=== PATIENT | female | born 1990 | race Caucasian/White ===

== ENCOUNTER 2017-03-14 14:28 | Emergency (ER) | payer OTHER ==
[2017-03-14] MEDS ORDERED: LORazepam 1 MG TABLET ONE (16:11)
[2017-03-14] MEDS ORDERED: ONDANSETRON ODT 4 MG TAB.RAPDIS ONE (16:17)
[2017-03-14] MEDS ORDERED: IBUPROFEN 600 MG TABLET PO ONE (16:36)
--- NOTE | 2017-03-14 17:10 | ER NURSING DOCUMENTATION ---
Nurse's Notes [facility] Name:Eduardo Diaz Age:27 yrs Sex:Female :1990 Arrival Date:03/14/2017 Time:14:28 Bed3 Private MD: Diagnosis:Cephalgia-: Acute Altitude Illness;Dehydration;Syncope Presentation: 03/14 14:32 Presenting complaint: Patient states: pt fainted today. She complains of a headache and st some dizziness. pt just arrived from [place]. Transition of care: patient was not received from another setting of care. 14:32 Acuity: SUKUMAR 3 st 14:32 Method Of Arrival: EMS: 420 st Triage Assessment: 14:34 General: Appears in no apparent distress, Behavior is cooperative. Pain: Complains of st pain in headache Pain currently is 5 out of 10 on a pain scale. Cardiovascular: No deficits noted. Reports EMS reports positive orthostatics. Respiratory: No deficits noted. GI: Reports nausea. Historical: - Allergies: PENICILLINS; - Home Meds: 1. control - PMHx: MIGRAINES; - PSHx: Tonsillectomy; - Tetanus: < 10 years. - Ebola Screening: : Patient denies exposure to infectious person. Patient denies travel to an Ebola-affected area in the 21 days before illness onset. . - Immunization history: Flu Vaccine < 1 year. - Social history: Smoking status: Patient states was never smoker of tobacco. Patient uses marijuana Patient/guardian denies using alcohol. Screenin:37 Infectious Disease Risk None. Abuse screen: Denies threats or abuse. Denies injuries st from another. pt feels safe at home. Nutritional screening: No deficits noted. Assessment: 14:38 General: Denies pt does not want any needles. . st 16:06 General: IV attempted pt had a full blown panic attack. IV with held at this time. . st 16:44 General: pt states her headache is getting a little better. pt is drowsy but is st drinking water and is going to try to eat some crackers. . Vital Signs: 14:37 BP 142 / 54; Pulse 90; Pulse Ox 97% ; Pain 5/10; st 16:05 BP 139 / 87; Pulse 69; Resp 16; Pulse Ox 96% on R/A; st 17:07 BP 137 / 65; Pulse 62; Resp 15; Pulse Ox 97% on R/A; Pain 0/10; mk2 [place] Coma Score: 14:50 Eye Response: spontaneous(4). Verbal Response: oriented(5). Motor Response: obeys cd commands(6). Total: 15. ED Course: 14:29 Patient arrived in ED. jl 14:32 Dottie Corea, RN is Primary Nurse. st 14:[address] 14:38 Valuables Remains with patient Patient has correct armband on for positive st identification. Bed in low position. 14:39 Diet: Patient given water. st 14:52 Marty Kumar MD is Attending Physician. cd 16:45 Diet: Patient given snack. Patient given water. st Administered Medications: 16:07 Drug: Ativan 1 mg; Route: PO; st 17:03 Follow up: pt more relaxed. st 16:08 Not Given (Other Intervention Used): NS 0.9% 1000 ml IV at bolus once st 16:08 Not Given (Other Intervention Used): Zofran 4 mg IVP once over [address] 16:08 Not Given (Other Intervention Used): Dilaudid 0.[address] 16:10 Drug: Zofran 4 mg; Route: PO; st 16:20 Follow up: Response: Nausea is decreased st 16:21 Drug: HYDROcodone-acetaminophen 5 mg-325 mg 1 tabs; Route: PO; st 17:03 Follow up: Response: Pain is decreased st 16:27 Drug: Motrin 600 mg; Route: PO; st 17:03 Follow up: Response: Pain is decreased st Point of Care Testing: Urine Dip: 15:11 pH: 6.5; ; Specific [place]: 1.020; Ketones: Negative; Glucose: Negative; Protein: sc1 Negative; Leukocytes: Negative; Nitrite: Negative ; Blood: Hemolyzed Trace; Bilirubin: Negative ; Urobilinogen: Normal Intake: 17:03 PO: 1500ml (Water); Total: 1500ml. st Outcome: 16:29 Discharge ordered by . cd 17:09 Discharged to home ambulatory. 2 17:09 Condition: improved 17:09 Discharge instructions given to patient, Instructed on discharge instructions, follow up and referral plans. medication usage, Prescriptions given X 2. 17:10 Patient left the ED. 2 03/15 14:11 Discharge F/U Call: Spoke with: patient. other: Name: pt has had no recurrence of her st dizziness or fainting. pt is feeling great and did not have any questions or concerns. Signatures: Dottie Corea RN RN st Campbell, Sandy, RN RN sc1 Marty Kumar MD MD cd Kruger, Meg, RN RN mk2 Ovi Rashid
--- NOTE | 2017-03-14 17:10 | ER PHYSICIAN DOCUMENTATION ---
Physician Documentation [facility] Name:Eduardo Diaz Age:27 yrs Sex:Female :1990 Arrival Date:03/14/2017 Time:14:28 Bed3 Private MD: Marty Mora Disposition: 03/14/17 16:29 Discharged to Home/Self Care. Impression: Cephalgia - : Acute Altitude Illness, Dehydration, Syncope. - Condition is Good. - Discharge Instructions: DEHYDRATION (6y-Adult), HEADACHE, Unspecified, SYNCOPE, Vasovagal. - Prescriptions for Zofran 4 mg Oral - take 1 tablet by ORAL route every 6 hours . as needed for nausea or vomiting; 20 tablet. Hydrocodone- Acetaminophen 5-325 mg Oral Tablet - take 1 tablet by ORAL route every 6 hours As needed; 20 tablet. - Medical Reconciliation form form. - Follow up: Private Physician; When: 7 - 10 days; Reason: Recheck today's complaints, Continuance of care. - Problem is new. - Symptoms are resolved. - Notes: Drink 2 - 3 quarts of Gatorade every day. Take Zofran 4mg under tongue every 6 hours as needed for nausea Take Ibuprofen 600mg by mouth every 6 hours with food for 2 - 3 days. Take Hydrocodone one tab by mouth every 6 hours as needed for severe pain. Do not go to higher elevation.....avoid alcohol....rest.... Eat three meals a day..... HPI: 03/14 14:30 This 27 yrs old Female presents to ER via EMS with complaints of Near Syncope.cd 14:30 The patient has experienced syncope, became unresponsive, collapsed. Onset: The cd symptom(s)/episode began/occurred acutely, just prior to arrival. Duration: This was a single episode, that lasted 20 second(s). Context: the episode(s) was witnessed, by a bystander, occurred while in line to get food, occurred while the patient was standing, Just prior to the episode the patient experienced lightheadedness, weakness. Associated injury: The patient did not suffer any apparent associated injury. Associated signs and symptoms: Pertinent positives: headache, nausea, seizure, patient had shaking, eyes did not roll back, no clenched teeth. Was mildly confused afterward for a short period of time. No history of seizures., Pertinent negatives: abdominal pain, chest pain, combativeness, diaphoresis, diarrhea, palpitations. Current symptoms: headache, that is moderate. The patient has not experienced similar symptoms in the past. Patient has a severe fear of needles and refused IV, Glucoscan en-route to the hospital and in the ED. Historical: - Allergies: PENICILLINS; - Home Meds: 1. control - PMHx: MIGRAINES; - PSHx: Tonsillectomy; - Tetanus: < 10 years. - Ebola Screening: : Patient denies exposure to infectious person. Patient denies travel to an Ebola-affected area in the 21 days before illness onset. . - Immunization history: Flu Vaccine < 1 year. - Social history: Smoking status: Patient states was never smoker of tobacco. Patient uses marijuana Patient/guardian denies using alcohol. ROS: 14:50 Eyes: Negative for injury, pain, redness, discharge, blurry vision and loss of vision. cd ENT: Negative for injury, pain, epistaxis and discharge. 14:50 Neck: Negative for injury, pain, stiffness and swelling. cd Back: Negative for injury, pain or muscle spasms. : Negative for injury, bleeding, discharge, dysuria, frequency, urgency and swelling. MS/Extremity: Negative for injury, deformity, edema, calf tenderness, pain or coldness. 14:50 Skin: Negative for injury, rash, itching and discoloration. 14:50 Constitutional: Positive for poor PO intake, Negative for chills, fever. 14:50 Cardiovascular: Negative for chest pain, edema, orthopnea, palpitations. 14:50 Respiratory: Negative for cough, hemoptysis, orthopnea, pleurisy, shortness of breath, wheezing. 14:50 Abdomen/GI: Positive for nausea, anorexia, Negative for abdominal pain, vomiting, diarrhea, hematemesis, black/tarry stool, rectal bleeding. 14:50 Neuro: Positive for headache, loss of consciousness, seizure activity, syncope, weakness, Negative for tingling, visual changes. 14:50 Psych: Positive for anxiety. 14:50 All other systems are negative. Exam: 14:50 Abdomen/GI: Inspection: abdomen appears normal, Bowel sounds: normal, Palpation: cd abdomen is soft and non-tender. Head/Face: Normocephalic, atraumatic. Neck: Trachea midline, no thyromegaly or masses palpated, and no cervical lymphadenopathy. Supple, full range of motion without nuchal rigidity, or vertebral point tenderness. No Meningismus. 14:50 Chest/axilla: Normal chest wall appearance and motion. Nontender with no deformity. No lesions are appreciated. Back: No spinal tenderness. No costovertebral tenderness. Full range of motion. Skin: Warm, dry with normal turgor. Normal color with no rashes, no lesions, and no evidence of cellulitis. 14:50 MS/ Extremity: Pulses equal, no cyanosis. Neurovascular intact. Full, normal range of motion. 14:50 Constitutional: The patient appears alert, awake, non-diaphoretic, non-toxic, well developed, well nourished, anxious. 14:50 Eyes: Pupils: equal, round, and reactive to light and accomodation. 14:50 Cardiovascular: Rate: normal, Rhythm: regular, Pulses: no pulse deficits are appreciated, Heart sounds: normal, Edema: is not appreciated. 14:50 Respiratory: the patient does not display signs of respiratory distress, Respirations: normal, Breath sounds: are normal, clear throughout. 14:50 Abdomen/GI: 14:50 Neuro: Orientation: is normal, to person, place & time. Mentation: is normal, Memory: is normal, Cranial nerves: CN II- XII are normal as tested, Cerebellar function: is grossly normal, Motor: moves all fours, Sensation: is normal, Deep tendon reflexes are normal. Vital Signs: 14:37 BP 142 / 54; Pulse 90; Pulse Ox 97% ; Pain 5/10; st 16:05 BP 139 / 87; Pulse 69; Resp 16; Pulse Ox 96% on R/A; st 17:07 BP 137 / 65; Pulse 62; Resp 15; Pulse Ox 97% on R/A; Pain 0/10; mk2 [place] Coma Score: 14:50 Eye Response: spontaneous(4). Verbal Response: oriented(5). Motor Response: obeys cd commands(6). Total: 15. MDM: 14:35 Differential Diagnosis: emotional response, idiopathic syncope, , pseudo cd seizure, seizure, vasovagal episode, Dehydration. 14:52 Patient medically screened. cd 16:20 Neurological re-evaluation: normal neurological exam including cranial nerves, cd orientation, mentation, motor and sensory exam, cerebellar testing, GCS normal, and normal gait. Data reviewed: vital signs, nurses notes, old medical records, lab test result(s), urinalysis, and as a result, I will discharge patient. Data interpreted: Pulse oximetry: on room air is 97 %. Interpretation: normal. ECG: An electrocardiogram was deferred on this patient. 16:30 Counseling: I had a detailed discussion with the patient and/or guardian regarding: the cd historical points, exam findings, and any diagnostic results supporting the discharge/admit diagnosis, lab results, the need for outpatient follow up, for a recheck, with the patient's primary care provider, to return to the emergency department if symptoms worsen or persist or if there are any questions or concerns that arise at home. Response to treatment: the patient's symptoms have resolved after treatment, mental status has returned to baseline, the patient is now symptom free, patient is well hydrated. and as a result, I will discharge patient. 03/14 15:28 Order name: HCG, URINE; Complete Time: 15:40 EDMS 03/14 15:40 Interpretation: Normal. 03/14 14:52 Order name: Urine Dip; Complete Time: 15:13 cd 03/14 14:53 Order name: Fluid Challenge: Push 2 quarts of Gatorade; Complete Time: 15:16 cd Dispensed Medications: 16:07 Drug: Ativan 1 mg; Route: PO; st 17:03 Follow up: pt more relaxed. st 16:08 Not Given (Other Intervention Used): NS 0.9% 1000 ml IV at bolus once st 16:08 Not Given (Other Intervention Used): Zofran 4 mg IVP once over [address] 16:08 Not Given (Other Intervention Used): Dilaudid 0.[address] 16:10 Drug: Zofran 4 mg; Route: PO; st 16:20 Follow up: Response: Nausea is decreased st 16:21 Drug: HYDROcodone-acetaminophen 5 mg-325 mg 1 tabs; Route: PO; st 17:03 Follow up: Response: Pain is decreased st 16:27 Drug: Motrin 600 mg; Route: PO; st 17:03 Follow up: Response: Pain is decreased st Point of Care Testing: Urine Dip: 15:11 pH: 6.5; ; Specific [place]: 1.020; Ketones: Negative; Glucose: Negative; Protein: sc1 Negative; Leukocytes: Negative; Nitrite: Negative ; Blood: Hemolyzed Trace; Bilirubin: Negative ; Urobilinogen: Normal Signatures: Dottie Corea, RN Marty Mauricio MD MD cd Kruger, Meg, JAN RN mk2
== END 2017-03-14 17:10 | disposition home or self-care (01) ==
LOC: ER 14:28
DX: R51 Headache (principal); E86.0 Dehydration; R55 Syncope and collapse; T70.29XA Other effects of high altitude, initial encounter; R11.0 Nausea; Z74.3 Need for continuous supervision; Z99.81 Dependence on supplemental oxygen
CPT/HCPCS: 84703; 99283; A0425; A0427